=== PATIENT | male | born 1990 | race Caucasian/White ===

== ENCOUNTER 2017-10-31 20:44 | Emergency (ER) | END 2017-10-31 23:14 | disposition home or self-care (01) ==

== ENCOUNTER 2018-02-17 10:18 | Emergency (ER) | END 2018-02-17 11:40 | disposition home or self-care (01) ==

== ENCOUNTER 2018-04-20 04:06 | Emergency (ER) | END 2018-04-20 07:35 | disposition home or self-care (01) ==

== ENCOUNTER 2018-04-29 20:59 | Emergency (ER) | END 2018-04-29 21:55 | disposition home or self-care (01) ==